=== PATIENT | female | born 1990 | race African-American/Black ===

== ENCOUNTER 2019-01-24 18:32 | Emergency (ER) | payer BC ==
[~2019-01-24] VITALS: Ht 152.4 cm; Wt 59.0 kg
[2019-01-24 18:41] VITALS: BP_SYST 130
[2019-01-24 19:15] LABS: BASOPHILS % (AUTO) 0.6 % (0.0-2.0); EOSINOPHILS % (AUTO) 0.4 % (0.0-4.0); HEMATOCRIT 31.2 % (36-48); HEMOGLOBIN 10.6 g/dL (12.0-16.0); LYMPHOCYTES # (AUTO) 0.9 K/uL (1.0-5.5); LYMPHOCYTES % (AUTO) 15.5 % (20.5-51.5); MEAN CORPUSCULAR HEMOGLOBIN 28 pg (27-31); MEAN CORPUSCULAR HGB CONC 34 % (32-36); MEAN CORPUSCULAR VOLUME 82 fL (79.0-98.0); MONOCYTES # (AUTO) 0.4 K/uL (0.0-1.0); MONOCYTES % (AUTO) 6.4 % (1.7-9.3); NEUTROPHILS # (AUTO) 4.6 K/uL (1.8-7.7); NEUTROPHILS % (AUTO) 77.1 % (40.0-70.0); PLATELET COUNT (AUTO) 350 K/uL (130-430); RED BLOOD CELL COUNT(AUTO) 3.82 MIL/uL (4.2-6.2)
--- NOTE | 2019-01-24 19:24 | NUR ---
Pt c/o right pelvic pain that radiatets to LLQ abdomin x 1 day. Pt also c/o N/V with 5 episodes of vomiting since yesterday. Denies vaginal discharge, no dysuria, no diarrhea.
--- NOTE | 2019-01-24 19:24 | NUR ---
Patient to ER bed 07 to gown for evaluation. Side rails up.
[2019-01-24 19:26] LABS: CALCIUM 9.1 mg/dL (8.4-11.0); CREATININE 0.55 mg/dL (0.55-1.30); POTASSIUM 3.9 mmol/L (3.5-5.1)
--- NOTE | 2019-01-24 19:30 | NUR ---
Dr. Mac at bedside.
[2019-01-24 19:52] LABS: ALBUMIN 3.3 g/dL (3.4-4.8); TOTAL BILIRUBIN 0.4 mg/dL (0.0-1.0)
[2019-01-24 20:29] LABS: BILIRUBIN,URINE NEGATIVE (NEGATIVE); CLARITY/URINE CLEAR (CLEAR); COLOR,URINE YELLOW (YELLOW); GLUCOSE,URINE NEGATIVE (NEGATIVE); KETONES,URINE 3+ (NEGATIVE); LEUKOCYTE ESTERASE ,URINE NEGATIVE (NEGATIVE); NITRITE, URINE NEGATIVE (NEGATIVE); PROTEIN URINE NEGATIVE (NEGATIVE); UROBILINOGEN,URINE 0.2 (0.2-1.0)
[2019-01-24 20:35] LABS: BLOOD, URINE TRACE (NEGATIVE)
[2019-01-24 20:37] LABS: BACTERIA,URINE FEW /HPF (None Seen); MUCUS,URINE None Seen /LPF (None Seen); RBC,URINE 0-3 /HPF (0-3); WBC,URINE 0-3 /HPF (0-3)
[2019-01-24] MEDS ORDERED: ACETAMINOPHEN 500 MG TABLET PO ONE (20:45)
--- NOTE | 2019-01-24 21:05 | NUR ---
Pt c/o nausea. Dr. Mac notified. Pt to be medicated with Zofran ODT prior to receiving Tylenol PO.
[2019-01-24] MEDS ORDERED: ONDANSETRON 4 MG ODT TAB PO ONE (21:15)
[2019-01-24] MEDS ORDERED: ONDANSETRON 4 MG ODT TAB ONE (21:15)
[2019-01-24 21:37] VITALS: BP_SYST 128
--- NOTE | 2019-01-24 21:37 | NUR ---
Patient given written and verbal discharge instructions and verbalizes understanding. ER MD discussed with patient the results and treatment provided. Patient in stable condition. ID arm band removed. Rx of Zofran given. Patient educated on pain management and to follow up with PMD. Pain Scale 1/10. Opportunity for questions provided and answered. Medication side effect fact sheet provided.
== END 2019-01-24 21:37 | disposition home or self-care (01) ==
LOC: SED 18:32
DX: O21.8 Other vomiting complicating pregnancy (principal); O99.012 Anemia complicating pregnancy, second trimester; O99.612 Diseases of the digestive system complicating pregnancy, second trimester; K92.89 Other specified diseases of the digestive system; R03.0 Elevated blood-pressure reading, without diagnosis of hypertension; Z3A.15 15 weeks gestation of pregnancy
CPT/HCPCS: 36415; 76805; 80053; 81000; 83690; 84702; 85025; 99284; Q0162

== ENCOUNTER 2019-02-06 08:42 | Emergency (ER) | payer BC ==
[~2019-02-06] VITALS: Ht 152.4 cm; Wt 61.2 kg
[2019-02-06 08:42] VITALS: BP_SYST 128
[2019-02-06 09:35] VITALS: BP_SYST 128
== END 2019-02-06 09:34 | disposition home or self-care (01) ==
LOC: SED 08:42
DX: O9A.212 Injury, poisoning and certain other consequences of external causes complicating pregnancy, second trimester (principal); S39.91XA Unspecified injury of abdomen, initial encounter; Z3A.18 18 weeks gestation of pregnancy; V43.52XA Car driver injured in collision with other type car in traffic accident, initial encounter; Y93.89 Activity, other specified; Y92.410 Unspecified street and highway as the place of occurrence of the external cause; Y99.8 Other external cause status
CPT/HCPCS: 99284

== ENCOUNTER 2019-07-07 17:45 | Inpatient (IN) | payer BC ==
[~2019-07-07] VITALS: Ht 154.9 cm; Wt 68.0 kg
[2019-07-07] MEDS ORDERED: LR 1,000 ML IV SCH ×2 (18:07→20:46)
[2019-07-07] MEDS ORDERED: TERBUTALINE SULFATE 1 MG/ML VIAL SUBCUT ONE (18:15)
[2019-07-07] MEDS ORDERED: TERBUTALINE SULFATE 1 MG/ML VIAL ONE (18:21)
[2019-07-07 19:02] LABS: BILIRUBIN,URINE NEGATIVE (NEGATIVE); BLOOD, URINE 1+ (NEGATIVE); CLARITY/URINE CLEAR (CLEAR); COLOR,URINE YELLOW (YELLOW); GLUCOSE,URINE NEGATIVE (NEGATIVE); KETONES,URINE TRACE (NEGATIVE); LEUKOCYTE ESTERASE ,URINE TRACE (NEGATIVE); NITRITE, URINE NEGATIVE (NEGATIVE); PROTEIN URINE 3+ (NEGATIVE); UROBILINOGEN,URINE 0.2 (0.2-1.0)
[2019-07-07 19:15] LABS: BACTERIA,URINE FEW /HPF (None Seen)
[2019-07-07] MEDS ORDERED: CEFAZOLIN 2 GM IVPB PREMIX 50 ML IV ONE (21:00)
[2019-07-07] MEDS ORDERED: TEMAZEPAM 15 MG CAPSULE PO PRN (21:00)
[2019-07-07 21:06] VITALS: BP_SYST 153
[2019-07-07 21:06] LABS: BASOPHILS % (AUTO) 0.1 % (0.0-2.0); EOSINOPHILS % (AUTO) 0.2 % (0.0-4.0); HEMATOCRIT 22.2 % (36-48); HEMOGLOBIN 7.2 g/dL (12.0-16.0); LYMPHOCYTES % (AUTO) 10.7 % (20.5-51.5); MEAN CORPUSCULAR HEMOGLOBIN 23 pg (27-31); MEAN CORPUSCULAR HGB CONC 33 % (32-36); MEAN CORPUSCULAR VOLUME 71 fL (79.0-98.0); MONOCYTES # (AUTO) 0.7 K/uL (0.0-1.0); MONOCYTES % (AUTO) 7.3 % (1.7-9.3); NEUTROPHILS # (AUTO) 7.5 K/uL (1.8-7.7); NEUTROPHILS % (AUTO) 81.7 % (40.0-70.0); PLATELET COUNT (AUTO) 279 K/uL (130-430); RED BLOOD CELL COUNT(AUTO) 3.11 MIL/uL (4.2-6.2); WHITE BLOOD COUNT (AUTO) 9.1 K/uL (4.8-10.8)
[2019-07-07] MEDS ORDERED: OXYTOCIN/0.9 % SODIUM CHLORIDE 1,000 ML IV ONE (21:20)
[2019-07-07] MEDS ORDERED: BISACODYL 10 MG/SUPPOSITORY RC PRN (21:30)
[2019-07-07] MEDS ORDERED: SENNOSIDES/DOCUSATE SODIUM 1 TAB TABLET(SENOKOT-S) PO PRN (21:30)
[2019-07-07] MEDS ORDERED: MEPERIDINE HCL/PF 50 MG/ML AMP IVP PRN (21:30)
[2019-07-07] MEDS ORDERED: LANOLIN 7 GM OINT. TP PRN (21:30)
[2019-07-07] MEDS ORDERED: NALOXONE HCL 0.4 MG/ML AMP (NARCAN) IVP PRN ×2 (21:45)
[2019-07-07] MEDS ORDERED: KETOROLAC TROMETHAMINE 60 MG/2 ML VIAL IM PRN (21:45)
[2019-07-07] MEDS ORDERED: NALBUPHINE HCL 10 MG/ML AMP IVP PRN (21:45)
[2019-07-07] MEDS ORDERED: fentaNYL CITRATE/PF 100 MCG/2 ML AMP IVP PRN ×2 (21:45)
[2019-07-07] MEDS ORDERED: MORPHINE SULFATE 10MG/10ML PF AMP SP SCH (21:45)
[2019-07-07] MEDS ORDERED: ONDANSETRON HCL 4 MG/2 ML VIAL IVP PRN (21:45)
[2019-07-07 22:21] VITALS: BP_SYST 143
[2019-07-07] MEDS ORDERED: BUPIVACAINE /PF 0.75% 10 ML VIAL INJ ONE (22:25)
[2019-07-07] MEDS ORDERED: NS IRRIG SOLN 1000 ML IR ONE (22:25)
[2019-07-07] MEDS ORDERED: LR 1,000 ML IV.SOLN IV ONE (22:25)
[2019-07-07] MEDS ORDERED: MIDAZOLAM HCL 5 MG/ML VIAL (VERSED) IV ONE (22:25)
[2019-07-07] MEDS ORDERED: KETOROLAC TROMETHAMINE 30 MG VIAL ONE (22:25)
[2019-07-07] MEDS ORDERED: MORPHINE SULFATE 10MG/10ML PF AMP ONE (22:25)
[2019-07-07] MEDS ORDERED: FLU VACC QS2019-20 36MOS UP/PF 60 MCG/0.5 ML SYRINGE I.M. PRN (23:00)
[2019-07-08] MEDS: CEFAZOLIN 1 GM IVPB PREMIX 50 ML IV SCH ×3 (03:00→18:30)
[2019-07-08] MEDS: DIPHENHYDRAMINE INJ 50 MG/ML VIAL IVP PRN ×3 (03:42→16:40)
[2019-07-08 05:36] LABS: NEUTROPHILS # (AUTO) 6.6 K/uL (1.8-7.7); WHITE BLOOD COUNT (AUTO) 8.2 K/uL (4.8-10.8)
[2019-07-08 05:50] LABS: BASOPHILS % (AUTO) 0.1 % (0.0-2.0); EOSINOPHILS % (AUTO) 0.2 % (0.0-4.0); LYMPHOCYTES # (AUTO) 0.8 K/uL (1.0-5.5); MEAN CORPUSCULAR HEMOGLOBIN 23 pg (27-31); MEAN CORPUSCULAR HGB CONC 32 % (32-36); MEAN CORPUSCULAR VOLUME 71 fL (79.0-98.0); MONOCYTES # (AUTO) 0.7 K/uL (0.0-1.0); NEUTROPHILS % (AUTO) 80.7 % (40.0-70.0); PLATELET COUNT (AUTO) 232 K/uL (130-430); RED BLOOD CELL COUNT(AUTO) 2.52 MIL/uL (4.2-6.2); RED CELL DISTRIBUTION WIDTH 19.9 % (9.0-15.0)
[2019-07-08 05:57] LABS: HEMOGLOBIN 5.9 g/dL (12.0-16.0)
[2019-07-08] MEDS: SIMETHICONE 80 MG TAB.CHEW PO PRN ×2 (07:13→17:05)
[2019-07-08] MEDS ORDERED: KETOROLAC TROMETHAMINE 30 MG VIAL IM ONE (11:39)
[2019-07-08] MEDS: OXYCODONE/ACETAMINOPHEN 5-325 TABLET PO PRN ×2 (17:04→19:03)
[2019-07-08 19:27] LABS: HEMATOCRIT 23.2 % (36-48); HEMOGLOBIN 7.8 g/dL (12.0-16.0); MEAN CORPUSCULAR HEMOGLOBIN 26 pg (27-31); MEAN CORPUSCULAR VOLUME 78 fL (79.0-98.0); RED BLOOD CELL COUNT(AUTO) 2.99 MIL/uL (4.2-6.2); WHITE BLOOD COUNT (AUTO) 9.4 K/uL (4.8-10.8)
[2019-07-08 19:28] LABS: BASOPHILS % (AUTO) 0.2 % (0.0-2.0); EOSINOPHILS % (AUTO) 0.2 % (0.0-4.0); LYMPHOCYTES % (AUTO) 7.5 % (20.5-51.5); MEAN CORPUSCULAR HGB CONC 34 % (32-36); MONOCYTES % (AUTO) 8.3 % (1.7-9.3); NEUTROPHILS # (AUTO) 7.9 K/uL (1.8-7.7); NEUTROPHILS % (AUTO) 83.8 % (40.0-70.0); PLATELET COUNT (AUTO) 244 K/uL (130-430); RED CELL DISTRIBUTION WIDTH 22.7 % (9.0-15.0)
[2019-07-08 19:29] LABS: LYMPHOCYTES # (AUTO) 0.7 K/uL (1.0-5.5); MONOCYTES # (AUTO) 0.8 K/uL (0.0-1.0)
[2019-07-09] MEDS: SIMETHICONE 80 MG TAB.CHEW PO PRN ×5 (00:11→23:14)
[2019-07-09] MEDS: OXYCODONE/ACETAMINOPHEN 5-325 TABLET PO PRN ×2 (00:11→04:09)
[2019-07-09] MEDS: DOCUSATE SODIUM 100 MG CAPSULE PO PRN ×2 (00:11→23:14)
[2019-07-09] MEDS: IBUPROFEN 800 MG TABLET PO PRN ×5 (00:11→23:14)
[2019-07-09] MEDS ORDERED: DIPHENHYDRAMINE HCL 25 MG CAPSULE PO PRN (11:15)
[2019-07-10] MEDS: OXYCODONE/ACETAMINOPHEN 5-325 TABLET PO PRN (08:40)
[2019-07-10] MEDS: SIMETHICONE 80 MG TAB.CHEW PO PRN (08:41)
[2019-07-10] MEDS: DOCUSATE SODIUM 100 MG CAPSULE PO PRN (08:41)
== END 2019-07-10 10:25 | disposition home or self-care (01) | DRG 784 ==
LOC: SPU 17:45 → OBSVTOIN 20:30 → SPU 23:24
PROVIDERS: ADMIT Specialist; ATTEND Specialist
PROC: 0UB70ZZ Excision of Bilateral Fallopian Tubes, Open Approach (ICD-10-PCS; 2019-07-07)
PROC: 10D00Z1 Extraction of Products of Conception, Low, Open Approach (ICD-10-PCS; principal; 2019-07-07 21:00)
PROC: 30233N1 Transfusion of Nonautologous Red Blood Cells into Peripheral Vein, Percutaneous Approach (ICD-10-PCS; 2019-07-08)
DX: O24.429 Gestational diabetes mellitus in childbirth, unspecified control (principal); O41.03X0 Oligohydramnios, third trimester, not applicable or unspecified; O34.211 Maternal care for low transverse scar from previous cesarean delivery; O90.81 Anemia of the puerperium; D64.9 Anemia, unspecified; Z37.0 Single live birth; Z30.2 Encounter for sterilization; Z3A.38 38 weeks gestation of pregnancy
CPT/HCPCS: 36415; 59899; 81000-TC; 81002-TC; 85025; 86592; 86886; 86900; 86901; 86920; 88302; 94760; G0378; J0690; J1200; J1885; J2175; J2250; J2274; J3105; J3490; J7050; J7120; P9021; Q0163